=== PATIENT | female | born 1970 | race Caucasian/White ===

== ENCOUNTER 2020-11-24 11:07 | Emergency (ER) | payer MEDICAID ==
[~2020-11-24] VITALS: Ht 177.8 cm; Wt 127.0 kg
--- NOTE | 2020-11-24 11:10 | NUR ---
patient bibs c/o headache, nausea and high blood pressure since yesterday. ox4, no sob noted, no s/o any acute distress. able to to make needs known breathing even and unlabored. denies pain at this time. Dr Sow at bedside. will continue with plan of care
[2020-11-24] MEDS ORDERED: CLONIDINE HCL 0.1 MG TABLET ONE (11:40)
[2020-11-24] MEDS ORDERED: PROCHLORPERAZINE EDISYLATE 10 MG/2 ML VIAL ONE (11:40)
[2020-11-24] MEDS ORDERED: diphenhydrAMINE HCL 50 MG/ML VIAL ONE (11:40)
--- NOTE | 2020-11-24 11:50 | NUR ---
iv started in left hand G#20, good blood return noted, blood work send to lab.
[2020-11-24 11:52] LABS: BASOPHILS # (AUTO) 0.2 K/uL (0.0-0.2); BASOPHILS % (AUTO) 1.7 % (0.0-2.0); EOSINOPHILS % (AUTO) 1.1 % (0.0-6.0); HEMATOCRIT 41 % (33-45); HEMOGLOBIN 13.8 g/dL (11.5-14.8); LYMPHOCYTES # (AUTO) 1.8 K/uL (0.8-4.8); MEAN CORPUSCULAR HGB CONC 33 g/dl (31.0-36.0); MEAN CORPUSCULAR VOLUME 91 fL (82-100); MONOCYTES # (AUTO) 0.4 K/uL (0.1-1.30); NEUTROPHILS # (AUTO) 7.6 K/uL (1.8-8.9); NEUTROPHILS % (AUTO) 75.2 % (43.0-81.0); PLATELET COUNT (AUTO) 442 K/uL (150-450); RED BLOOD CELL COUNT(AUTO) 4.54 MIL/uL (4.0-5.2); WHITE BLOOD COUNT (AUTO) 10.1 K/uL (4.3-11.0)
[2020-11-24] MEDS ORDERED: PROCHLORPERAZINE EDISYLATE 10 MG/2 ML VIAL IVP ONE (12:00)
[2020-11-24] MEDS ORDERED: diphenhydrAMINE HCL 50 MG/ML VIAL IV ONE (12:00)
[2020-11-24] MEDS ORDERED: CLONIDINE HCL 0.1 MG TABLET PO ONE (12:00)
[2020-11-24 12:15] LABS: CALCIUM, SERUM 8.5 mg/dL (8.5-10.1); CARBON DIOXIDE 21 mmol/L (21-32); CHLORIDE 105 mmol/L (98-107); CREATININE 0.8 mg/dL (0.6-1.3); GLUCOSE 102 mg/dL (74-106); POTASSIUM 3.6 mmol/L (3.5-5.1); SODIUM SERUM 138 mmol/L (136-145); UREA NITROGEN, BLOOD 12 mg/dL (7-18)
[2020-11-24 12:21] LABS: ALANINE AMINOTRANSFERASE 16 U/L (12-78); ALBUMIN 2.9 g/dL (3.4-5.0); ALKALINE PHOSPHATASE 81 U/L (46-116); ASPARTATE AMINOTRANSFERASE 18 U/L (15-37); BILIRUBIN,DIRECT 0.1 mg/dL (0.0-0.2); BILIRUBIN,TOTAL 0.3 mg/dL (0.2-1.0); TOTAL PROTEIN, SERUM 7.5 g/dL (6.4-8.2)
[2020-11-24 13:35] VITALS: BP 135/61
--- NOTE | 2020-11-24 13:35 | NUR ---
Patient discharged to home in stable condition. Written and verbal after care instructions given. Patient verbalizes understanding of instruction.
== END 2020-11-24 13:35 | disposition home or self-care (01) ==
LOC: ER 11:07
DX: I10 Essential (primary) hypertension (principal); R51.9 Headache, unspecified
CPT/HCPCS: 71045; 80048; 80076; 82962; 84484; 85025; 93005; 96374; 96375; 99285; J0780; J1200; 36415